=== PATIENT | female | born 1990 | race Caucasian/White ===

== ENCOUNTER 2016-09-23 21:48 | Emergency (ER) | payer OTHER | END 2016-09-24 00:45 | disposition home or self-care (01) | LOC: ER 21:48 | DX: N39.0 Urinary tract infection, site not specified (principal); K02.9 Dental caries, unspecified; R51 Headache; R09.81 Nasal congestion; F17.210 Nicotine dependence, cigarettes, uncomplicated; Z88.5 Allergy status to narcotic agent ==